=== PATIENT | female | born 1985 | race Caucasian/White ===

== ENCOUNTER → 2020-04-02 | Outpatient (CLI) | payer OTHER ==
--- NOTE | 2020-04-02 14:12 | XR ---
EXAMINATION TYPE: XR knee 4V LT DATE OF EXAM: 04/02/2020 COMPARISON: NONE HISTORY: Pain TECHNIQUE: Three views are submitted. FINDINGS: Joint spaces are preserved. Osseous structures are intact. No acute fracture seen. Mild narrowing medial compartment of the knee joint with a tiny spur. There is a soft tissue ossification in the pre patellar soft tissues. Small suprapatellar bursal fluid collection. IMPRESSION: 1. No acute fracture or dislocation. Small patellar bursal fluid collection with mild osteoarthritis . Correlate with MRI as clinically warranted.
--- NOTE | 2020-04-02 14:18 | US ---
EXAMINATION TYPE: US pelvis complete transvag DATE OF EXAM: 04/02/2020 COMPARISON: NONE CLINICAL HISTORY: N92.6 Irregular menstruation, unspecified. Ovary pain TECHNIQUE: . Transabdominal sonographic images of the pelvis were acquired. Transvaginal sonographi c images were medically necessary to better assess the following anatomy: Uterus Date of LMP: 03/18/2020 EXAM MEASUREMENTS: Uterus: 7.7 x 5.3 x 4.9 cm Endometrial Stripe: 1.0 cm Right Ovary: 3.2 x 2.5 x 2.5 cm Left Ovary: 3.2x 1.7 x 1.8 cm 1. Uterus: Retroverted wnl 2. Endometrium: wnl 3. Right Ovary: Complex area measuring 2.2 x 1.6 x 1.9 cm 4. Left Ovary: wnl 5. Bilateral Adnexa: wnl 6. Posterior cul-de-sac: small amount of free fluid visualized Retroverted uterus. Endometrium 10 mm which is within normal limits for secretory phase of menstrual cycle. Tiny amount of free fluid in pelvic cul-de-sac. Both ovaries are normal and symmetric in size. Right ovary has peripheral hypervascular 2.2 cm cystic lesion with peripheral solid tissue, I suspect involuting corpus luteal cyst from recent ovulation. No concerning adnexal masses noted. IMPRESSION: Source of pain and irregular menses is not identified.
== END | disposition home or self-care (01) ==
LOC: RADUSWWP 13:22
PROVIDERS: ATTEND Pediatrics
DX: N92.6 Irregular menstruation, unspecified (principal); M17.12 Unilateral primary osteoarthritis, left knee
CPT/HCPCS: 76830; 76856

== ENCOUNTER → 2020-08-11 | Outpatient (CLI) | payer OTHER ==
[2020-08-11 20:31] LABS: Gliadin AB IgA, Deaminated NEGATIVE (NEGATIVE); Gliadin AB IgA, Unit 3.4 U/mL; Gliadin AB IgG, Deaminated NEGATIVE (NEGATIVE)
== END | disposition home or self-care (01) ==
LOC: LABWHC1 14:00
PROVIDERS: ATTEND Nurse Practitioner
DX: K59.09 Other constipation (principal)
CPT/HCPCS: 36415; 83516

== ENCOUNTER → 2023-07-26 | Outpatient (CLI) | payer OTHER ==
--- NOTE | 2023-07-28 09:40 | MR ---
EXAMINATION TYPE: MR knee LT wo con DATE OF EXAM: 07/26/2023 COMPARISON: None HISTORY: Lt knee pain TECHNIQUE: Multiplanar, multisequence imaging of the left knee is performed without IV contrast. FINDINGS: MEDIAL MENISCUS: Anterior and posterior horns are intact without tear. LATERAL MENISCUS: Anterior and posterior horns are intact without tear. CRUCIATE LIGAMENTS: The anterior and posterior cruciate ligaments are intact and unremarkable. COLLATERAL LIGAMENTS: The medial collateral ligament and lateral collateral ligament complex are inta ct and unremarkable. EXTENSOR MECHANISM: Visualized quadriceps and patellar tendons are intact. EFFUSION: No significant suprapatellar joint effusion. POPLITEAL CYST: No popliteal/lindquist cyst. TRICOMPARTMENT SPACES: Mild narrowing patellofemoral joint space with early changes of chondromalacia patella. CARTILAGE: Intact BONE MARROW SIGNAL: No focal abnormal marrow signal is appreciated. OTHER: No additional significant abnormality is appreciated. IMPRESSION: No visible internal arrangement. Mild narrowing patellofemoral joint space with early changes of elicia dromalacia patella.
== END | disposition home or self-care (01) ==
LOC: RADMRIMAIN 13:28
PROVIDERS: ATTEND Orthopaedic Surgery
DX: M22.42 Chondromalacia patellae, left knee (principal); M22.2X1 Patellofemoral disorders, right knee; S83.242A Other tear of medial meniscus, current injury, left knee, initial encounter; S83.222A Peripheral tear of medial meniscus, current injury, left knee, initial encounter; X58.XXXA Exposure to other specified factors, initial encounter